=== PATIENT | female | born 1970 | race Caucasian/White ===

== ENCOUNTER 2018-09-09 09:48 | Inpatient (IN) | payer OTHER ==
[2018-09-09 10:33] VITALS: BMI 39.6
--- NOTE | 2018-09-09 11:01 | HP ---
CIWA Score Nausea/Vomitin Muscle Tremors: 3 Anxiety: 2 Agitation: 1-Slight > Activity Paroxysmal Sweats: 1-Minimal Palms Moist Orientation: 0-Oriented Tacttile Disturbances: 1-Very Mild Itch/Numbness Auditory Disturbances: 0-None Visual Disturbances: 0-None Headache: 2-Mild CIWA-Ar Total Score: 13 - Admission Criteria OASAS Guidelines: Admission for Medically Managed Detox: Requires at least one of the followin. CIWA greater than 12 2. Seizures within the past 24 hours 3. Delirium tremens within the past 24 hours 4. Hallucinations within the past 24 hours 5. Acute intervention needed for co occurring medical disorder 6. Acute intervention needed for co occurring psychiatric disorder 7. Severe withdrawal that cannot be handled at a lower level of care (continued vomiting, continued diarrhea, abnormal vital signs) requiring intravenous medication and/or fluids 8. Admission ROS [facility] Chief Complaint: 48y /o F with PMH depression, possible fatty liver dz, who presents for alcohol withdrawal. Allergies/Adverse Reactions: Allergies Allergy/AdvReac Type Severity Reaction Status Date / Time No Known Allergies Allergy Verified 09/09/18 10:19 History of Present Illness: 48y /o F with PMH depression, possible fatty liver dz, who presents for alcohol withdrawal.States that her last drink was this AM, she had 1 beer. Since she has tremors intermittently, she ends up drinking liquor in order to quell them. Drinks daily usually, 1-2 pints of vodka. Longest sobriety 3 months after attending programs. States that she drinks because she "is addicted," not because she wants to feel happy or is feeling depressed. Starting drinking in her 20's. Has history of alcohol withdrawal sz, not on meds. Happened to her 1x. Denies blackouts. Was referred here by [facility], had went there originally for alcohol detox and back pain, was subsequently sent here. Is unsure of her plans after detox, but would like to go back to work. 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 Is unsure whether she wants to do rehab. PMH: as above PsxH: denies meds: none allergies: NKDA FH: grandma (paternal side)- cancer, cousin- cancer. does not know which type SH: lives in an apt with daughter. at times, has stress involving her daughter' s father. may cause her to drink more. states she has good social support. 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 smokes cigarettes when she drinks 1-2 cigs/day. denies other drug use, alcohol use as above. Exam Limitations: No Limitations - Ebola screening Have you traveled outside of the country in the last 21 days: No Have you had contact with anyone from an Ebola affected area: No Have you been sick,other than usual withdrawal symptoms: No Do you have a fever: No - Review of Systems Constitutional: Night Sweats, Changes in sleep EENT: reports: No Symptoms Reported Respiratory: reports: No Symptoms reported Cardiac: reports: No Symptoms Reported GI: reports: Nausea, Vomiting : reports: No Symptoms Reported Musculoskeletal: reports: Back Pain Integumentary: reports: No Symptoms Reported Neuro: reports: No Symptoms reported Endocrine: reports: No Symptoms Reported Hematology: reports: No Symptoms Reported Psychiatric: reports: No Sypmtoms Reported, Orientated x3 Patient History - Patient Medical History Hx Anemia: No Hx Asthma: No Hx Chronic Obstructive Pulmonary Disease (COPD): No Hx Cancer: No Hx Cardiac Disorders: No Hx Congestive Heart Failure: No Hx Hypertension: No Hx Hypercholesterolemia: No Hx Pacemaker: No HX Cerebrovascular Accident: No Hx Seizures: No Hx Dementia: No Hx Diabetes: No Hx Gastrointestinal Disorders: No Hx Liver Disease: No Hx Genitourinary Disorders: No Hx Sexually Transmitted Disorders: No Hx Renal Disease (ESRD): No Hx Thyroid Disease: No Hx Human Immunodeficiency Virus (HIV): No Hx Hepatitis C: No Hx Depression: Yes Hx Suicide Attempt: No Hx Bipolar Disorder: No Hx Schizophrenia: No - Patient Surgical History Past Surgical History: No - PPD History Documented Results: Positive w/o proof PPD to be Administered?: No - Reproductive History Patient is a Female of Child Bearing Age (11 -55 yrs old): No Patient : No - Smoking Cessation Smoking history: Current some day smoker Aproximately how many cigarettes per day: 1 Initiated information on smoking cessation: Yes 'Breaking Loose' booklet given: 09/09/18 - Substances abused Alcohol Substance route: Oral Frequency: Daily Amount used: 2 pints of vodka Age of first use: 21 Date of last use: 09/09/18 Family Disease History - Family Disease History Family Disease History: CA: Grandparent Admission Physical Exam BHS - Vital Signs Vital Signs: Vital Signs - 24 hr 09/09/18 10:19 Temperature 99.0 F Pulse Rate 105 H Respiratory 20 Rate Blood Pressure 133/89 - Physical General Appearance: Yes: Tremorous HEENTM: Yes: Within Normal Limits, Normal ENT Inspection Respiratory: Yes: Within Normal Limits Neck: Yes: Supple Breast: Yes: Breast Exam Deferred Cardiology: Yes: Regular Rhythm, Regular Rate, Tachycardia Abdominal: Yes: Within Normal Limits Genitourinary: Yes: Within Normal Limits Back: Yes: Within Normal Limits Musculoskeletal: Yes: Within Normal Limits Extremities: Yes: Within Normal Limits, Other (+tremulous) Neurological: Yes: garment manufacturer II-XII NML intact, Other (+tongue fasciculations) Integumentary: Yes: Within Normal Limits Lymphatic: Yes: Within Normal Limits - Diagnostic (1) Depression Current Visit: Yes Status: Chronic (2) Dehydration Current Visit: Yes Status: Acute (3) Alcohol withdrawal Current Visit: Yes Status: Acute (4) Fatty liver Current Visit: Yes Status: Chronic (5) Alcohol withdrawal seizure Current Visit: Yes Status: Chronic Cleared for Admission [facility] - Detox or Rehab [facility] Level of Care: Medically Managed Detox Regimen/Protocol: Librium Breathalyzer - Breathalyzer Breathalyzer: 0.099 Urine Drug Screen - Test Device Lot number: [id number] Expiration date: 06/15/19 - Control Is test valid?: Yes - Results Drug screen NEGATIVE: Yes Inpatient Rehab Admission - Rehab Decision to Admit Inpatient rehab admission?: No
[2018-09-09] MEDS ORDERED: chlordiazePOXIDE HCL 25 MG CAPSULE PO PRN (11:16)
[2018-09-09] MEDS ORDERED: MAGNESIUM HYDROX 2400MG/30ML ORAL SUSPENSION 30 ML CUP PO PRN (11:17)
[2018-09-09] MEDS ORDERED: IBUPROFEN 400 MG TABLET (FP) PO PRN (11:17)
[2018-09-09] MEDS ORDERED: ACETAMINOPHEN 325 MG TABLET (FP) PO PRN ×2 (11:17)
[2018-09-09] MEDS ORDERED: BISMUTH SUBSALICYLATE 262 MG/15 ML BTL PO PRN (11:17)
[2018-09-09] MEDS ORDERED: hydrOXYzine HCL 25 MG TABLET (FP) PO PRN (11:17)
[2018-09-09] MEDS ORDERED: MENTHOL/PHENOL 1 EACH UD MM PRN (11:17)
[2018-09-09] MEDS: chlordiazePOXIDE HCL 25 MG CAPSULE PO SCH ×3 (12:45→23:18)
[2018-09-09 15:41] LABS: HEMATOCRIT 35.6 % (32.4-45.2); HEMOGLOBIN 11.7 GM/dL (10.7-15.3); MCH 30.5 pg (25.7-33.7); MCHC 32.7 g/dl (32.0-36.0); MEAN PLT VOLUME 9.9 fl (7.5-11.1); PLATELET COUNT 212 K/MM3 (134-434); RBC 3.83 M/mm3 (3.60-5.2); RDW 22.6 % (11.6-15.6); WHITE BLOOD COUNT 11.2 K/mm3 (4.0-10.0)
[2018-09-09 15:51] LABS: BILIRUBIN,TOTAL 1.8 mg/dL (0.2-1); BLOOD UREA NITROGEN 9.9 mg/dL (7-18); CALCIUM 7.6 mg/dL (8.5-10.1); CREATININE 0.9 mg/dL (0.55-1.3); POTASSIUM 3.5 mmol/L (3.5-5.1); TOT PROT 8.1 g/dl (6.4-8.2)
[2018-09-10] MEDS: chlordiazePOXIDE HCL 25 MG CAPSULE PO SCH ×4 (06:03→22:41)
[2018-09-10] MEDS: PRENATAL VITAMINS W/ FOLIC ACID TABLET (FP) PO SCH (10:17)
--- NOTE | 2018-09-10 13:09 | PN ---
S CIWA - CIWA Score Nausea/Vomitin-No Nausea/No Vomiting Muscle Tremors: 2 Anxiety: 3 Agitation: 2 Paroxysmal Sweats: 3 Orientation: 0-Oriented Tacttile Disturbances: 0-None Auditory Disturbances: 0-None Visual Disturbances: 0-None Headache: 2-Mild CIWA-Ar Total Score: 12 S Progress Note (SOAP) Subjective: c/o sweats, shakes, headache, and anxiety. Objective: 09/10/18 13:09 Vital Signs 09/10/18 09/10/18 06:00 09:43 Temperature 99.3 F 99.1 F Pulse Rate 107 H 72 Respiratory 18 18 Rate Blood Pressure 127/78 129/96 Lab Results WBC 11.2 K/mm3 (4.0-10.0) H 09/09/18 11:50 RBC 3.83 M/mm3 (3.60-5.2) 09/09/18 11:50 Hgb 11.7 GM/dL (10.7-15.3) 09/09/18 11:50 Hct 35.6 % (32.4-45.2) 09/09/18 11:50 MCV 93.0 fl (80-96) 09/09/18 11:50 MCHC 32.7 g/dl (32.0-36.0) 09/09/18 11:50 RDW 22.6 % (11.6-15.6) H 09/09/18 11:50 Plt Count 212 K/MM3 (134-434) 09/09/18 11:50 Sodium 141 mmol/L (136-145) 09/09/18 11:50 Potassium 3.5 mmol/L (3.5-5.1) 09/09/18 11:50 Chloride 100 mmol/L (98-107) 09/09/18 11:50 Carbon Dioxide 21 mmol/L (21-32) 09/09/18 11:50 Anion Gap 20 MMOL/L (8-16) H 09/09/18 11:50 BUN 9.9 mg/dL (7-18) 09/09/18 11:50 Creatinine 0.9 mg/dL (0.55-1.3) 09/09/18 11:50 Random Glucose 74 mg/dL (74-106) 09/09/18 11:50 Calcium 7.6 mg/dL (8.5-10.1) L 09/09/18 11:50 Labs noted. Assessment: 09/10/18 13:09 AOX3, in no respiratory distress. Full ROM, ambulating in the unit. Withdrawal symptoms. Plan: continue detox.
[2018-09-10] MEDS: MELATONIN 5 MG TABLETS PO PRN (22:41)
[2018-09-11] MEDS: chlordiazePOXIDE HCL 25 MG CAPSULE PO SCH ×4 (05:53→22:39)
[2018-09-11] MEDS: PRENATAL VITAMINS W/ FOLIC ACID TABLET (FP) PO SCH (10:13)
[2018-09-11] MEDS ORDERED: ONDANSETRON *ODT* 4 MG TABLET SL PRN (11:38)
--- NOTE | 2018-09-11 17:17 | PN ---
[facility] CIWA - CIWA Score Nausea/Vomitin-Mild Nausea/No Vomiting Muscle Tremors: 2 Anxiety: 2 Agitation: 2 Paroxysmal Sweats: 2 Orientation: 0-Oriented Tacttile Disturbances: 0-None Auditory Disturbances: 0-None Visual Disturbances: 0-None Headache: 1-Very Mild CIWA-Ar Total Score: 10 S Progress Note (SOAP) Subjective: Nausea, headache, tremor, sweating Objective: 09/11/18 17:14 Last Vital Signs Temp Pulse Resp BP Pulse Ox 98.4 F 109 H 18 113/73 09/11/18 16:53 09/11/18 16:53 09/11/18 16:53 09/11/18 16:53 Laboratory Tests 09/09/18 09/09/18 09/09/18 11:50 11:50 11:50 WBC 11.2 H RBC 3.83 Hgb 11.7 Hct 35.6 MCV 93.0 MCH 30.5 MCHC 32.7 RDW 22.6 H Plt Count 212 MPV 9.9 Sodium 141 Potassium 3.5 Chloride 100 Carbon Dioxide 21 Anion Gap 20 H BUN 9.9 Creatinine 0.9 Est GFR (CKD-EPI)AfAm 88.25 Est GFR (CKD-EPI)NonAf 76.14 Random Glucose 74 Calcium 7.6 L Total Bilirubin 1.8 H AST 328 H ALT 129 H Alkaline Phosphatase 245 H Total Protein 8.1 Albumin 4.0 RPR Titer Nonreactive HIV 1&2 Antibody Screen HIV P24 Antigen 09/09/18 12:50 WBC RBC Hgb Hct MCV MCH MCHC RDW Plt Count MPV Sodium Potassium Chloride Carbon Dioxide Anion Gap BUN Creatinine Est GFR (CKD-EPI)AfAm Est GFR (CKD-EPI)NonAf Random Glucose Calcium Total Bilirubin AST ALT Alkaline Phosphatase Total Protein Albumin RPR Titer HIV 1&2 Antibody Screen Negative HIV P24 Antigen Negative Labs reviewed: wbc 11.2, LFTs elevated Assessment: 09/11/18 17:16 Withdrawal sxs Noted with leukocytosis and elevated LFTs Plan: Continue detox Encouraged PO water intake Leukocytosis: asymptomatic, repeat CBC, send UA Elevated LFTs: repeat hepatic function panel
[2018-09-11] MEDS: MELATONIN 5 MG TABLETS PO PRN (22:39)
[2018-09-11] MEDS: MAG HYDROX/AL HYDROX/SIMETH 30 ML UNIT-DOSE CUP PO PRN (22:40)
[2018-09-12] MEDS ORDERED: chlordiazePOXIDE HCL 10 MG CAPSULE PO PRN
[2018-09-12] MEDS: chlordiazePOXIDE HCL 10 MG CAPSULE PO SCH ×4 (06:01→22:49)
[2018-09-12] MEDS: PRENATAL VITAMINS W/ FOLIC ACID TABLET (FP) PO SCH (10:37)
[2018-09-12 12:34] LABS: BASO % 0.9 % (0-2.0); EOS % 4.8 % (0-4.5); HEMATOCRIT 31.3 % (32.4-45.2); HEMOGLOBIN 10.5 GM/dL (10.7-15.3); LYMPH % 21.9 % (8-40); MCH 31.2 pg (25.7-33.7); MCHC 33.5 g/dl (32.0-36.0); MEAN PLT VOLUME 10.6 fl (7.5-11.1); NEUT % 67.4 % (42.8-82.8); PLATELET COUNT 137 K/MM3 (134-434); RBC 3.36 M/mm3 (3.60-5.2); RDW 21.9 % (11.6-15.6); WHITE BLOOD COUNT 6.9 K/mm3 (4.0-10.0)
[2018-09-12 13:00] LABS: ALBUMIN 3.3 g/dl (3.4-5.0); BILIRUBIN,TOTAL 2.4 mg/dL (0.2-1); TOT PROT 6.7 g/dl (6.4-8.2)
[2018-09-12 13:08] LABS: ANISOCYTOSIS 1+
[2018-09-12 13:09] LABS: MACROCYTOSIS 1+; TARGET CELLS 1+
--- NOTE | 2018-09-12 14:41 | PN ---
S CIWA - CIWA Score Nausea/Vomitin-No Nausea/No Vomiting Muscle Tremors: 3 Anxiety: 2 Agitation: 2 Paroxysmal Sweats: 1-Minimal Palms Moist Orientation: 0-Oriented Tacttile Disturbances: 0-None Auditory Disturbances: 0-None Visual Disturbances: 0-None Headache: 0-None Present CIWA-Ar Total Score: 8 BHS Progress Note (SOAP) Subjective: agitation sweats anxiety Objective: 09/12/18 14:40 Vital Signs Temperature 98.2 F 09/12/18 13:32 Pulse Rate 105 H 09/12/18 13:32 Respiratory Rate 20 09/12/18 13:32 Blood Pressure 107/64 09/12/18 13:32 O2 Sat by Pulse Oximetry (%) Laboratory Tests 09/09/18 09/09/18 09/09/18 10:53 11:50 11:50 WBC 11.2 H RBC 3.83 Hgb 11.7 Hct 35.6 MCV 93.0 MCH 30.5 MCHC 32.7 RDW 22.6 H Plt Count 212 MPV 9.9 Absolute Neuts (auto) Neutrophils % Lymphocytes % Monocytes % Eosinophils % Basophils % Nucleated RBC % Anisocytosis Macrocytosis Target Cells Sodium 141 Potassium 3.5 Chloride 100 Carbon Dioxide 21 Anion Gap 20 H BUN 9.9 Creatinine 0.9 Est GFR (CKD-EPI)AfAm 88.25 Est GFR (CKD-EPI)NonAf 76.14 Random Glucose 74 Calcium 7.6 L Total Bilirubin 1.8 H Direct Bilirubin AST 328 H ALT 129 H Alkaline Phosphatase 245 H Total Protein 8.1 Albumin 4.0 POC Urine HCG, Qual Negative RPR Titer HIV 1&2 Antibody Screen HIV P24 Antigen 09/09/18 09/09/18 09/12/18 11:50 12:50 07:00 WBC 6.9 RBC 3.36 L Hgb 10.5 L Hct 31.3 L MCV 93.0 MCH 31.2 MCHC 33.5 RDW 21.9 H Plt Count 137 D MPV 10.6 Absolute Neuts (auto) 4.6 Neutrophils % 67.4 Lymphocytes % 21.9 Monocytes % 5.0 Eosinophils % 4.8 H Basophils % 0.9 Nucleated RBC % 0 Anisocytosis 1+ Macrocytosis 1+ Target Cells 1+ Sodium Potassium Chloride Carbon Dioxide Anion Gap BUN Creatinine Est GFR (CKD-EPI)AfAm Est GFR (CKD-EPI)NonAf Random Glucose Calcium Total Bilirubin Direct Bilirubin AST ALT Alkaline Phosphatase Total Protein Albumin POC Urine HCG, Qual RPR Titer Nonreactive HIV 1&2 Antibody Screen Negative HIV P24 Antigen Negative 09/12/18 07:00 WBC RBC Hgb Hct MCV MCH MCHC RDW Plt Count MPV Absolute Neuts (auto) Neutrophils % Lymphocytes % Monocytes % Eosinophils % Basophils % Nucleated RBC % Anisocytosis Macrocytosis Target Cells Sodium Potassium Chloride Carbon Dioxide Anion Gap BUN Creatinine Est GFR (CKD-EPI)AfAm Est GFR (CKD-EPI)NonAf Random Glucose Calcium Total Bilirubin 2.4 H Direct Bilirubin 2.0 H AST 221 H ALT 127 H Alkaline Phosphatase 220 H Total Protein 6.7 Albumin 3.3 L POC Urine HCG, Qual RPR Titer HIV 1&2 Antibody Screen HIV P24 Antigen labs noted repeated ast and alt slowly improving will repeat labs again aaox3 ambulating no acute distress Assessment: 09/12/18 14:41 withdrawal sx Plan: continue detox increase fluids repeat ast/alt
[2018-09-12] MEDS: MELATONIN 5 MG TABLETS PO PRN (22:49)
[2018-09-13] MEDS: chlordiazePOXIDE HCL 10 MG CAPSULE PO SCH ×2 (06:28→17:56)
[2018-09-13 10:35] LABS: SGOT/AST 156 U/L (15-37); SGPT/ALT 100 U/L (13-61)
[2018-09-13] MEDS: PRENATAL VITAMINS W/ FOLIC ACID TABLET (FP) PO SCH (10:47)
[2018-09-13 11:07] LABS: URINE APPEARANCE CLEAR; URINE BILIRUBIN NEGATIVE (NEGATIVE); URINE COLOR YELLOW; URINE GLUCOSE (UA) NEGATIVE (NEGATIVE); URINE KETONE NEGATIVE (NEGATIVE); URINE LEUK ESTERASE NEGATIVE (NEGATIVE); URINE NITRITE NEGATIVE (NEGATIVE); URINE PROTEIN NEGATIVE (NEGATIVE); URINE UROBILINOGEN 0.2 mg/dL (0.2-1.0)
--- NOTE | 2018-09-13 11:55 | PN ---
S CIWA - CIWA Score Nausea/Vomitin-No Nausea/No Vomiting Muscle Tremors: 2 Anxiety: 1-Mildly Anxious Agitation: 2 Paroxysmal Sweats: 1-Minimal Palms Moist Orientation: 0-Oriented Tacttile Disturbances: 0-None Auditory Disturbances: 0-None Visual Disturbances: 0-None Headache: 0-None Present CIWA-Ar Total Score: 6 BHS Progress Note (SOAP) Subjective: sweats anxiety Objective: 09/13/18 11:54 Vital Signs Temperature 97.3 F L 09/13/18 09:28 Pulse Rate 103 H 09/13/18 09:28 Respiratory Rate 18 09/13/18 09:28 Blood Pressure 111/74 09/13/18 09:28 O2 Sat by Pulse Oximetry (%) aaox3 ambulating no acute distress Assessment: 09/13/18 11:54 mild withdrawal sx Plan: continue detox increase fluids d/c in am
[2018-09-13] MEDS: MAG HYDROX/AL HYDROX/SIMETH 30 ML UNIT-DOSE CUP PO PRN (17:58)
[2018-09-14] MEDS ORDERED: chlordiazePOXIDE HCL 10 MG CAPSULE PO ONE (05:00)
[2018-09-14 08:07] VITALS: BP 118/76; PULSE 87; TEMP 98.1
--- NOTE | 2018-09-14 09:48 | DS ---
[facility] Detox Discharge Summary Admission Date: 09/09/18 Discharge Date: 09/14/18 - History Present History: Alcohol Dependence - Physical Exam Results Vital Signs: Vital Signs Temperature 98.1 F 09/14/18 08:06 Pulse Rate 87 09/14/18 08:06 Respiratory Rate 18 09/14/18 08:06 Blood Pressure 118/76 09/14/18 08:06 O2 Sat by Pulse Oximetry (%) Pertinent Admission Physical Exam Findings: pt arrived in withdrawal sx Laboratory Tests 09/09/18 09/09/18 09/09/18 10:53 11:50 11:50 WBC 11.2 H RBC 3.83 Hgb 11.7 Hct 35.6 MCV 93.0 MCH 30.5 MCHC 32.7 RDW 22.6 H Plt Count 212 MPV 9.9 Absolute Neuts (auto) Neutrophils % Lymphocytes % Monocytes % Eosinophils % Basophils % Nucleated RBC % Anisocytosis Macrocytosis Target Cells Sodium 141 Potassium 3.5 Chloride 100 Carbon Dioxide 21 Anion Gap 20 H BUN 9.9 Creatinine 0.9 Est GFR (CKD-EPI)AfAm 88.25 Est GFR (CKD-EPI)NonAf 76.14 Random Glucose 74 Calcium 7.6 L Total Bilirubin 1.8 H Direct Bilirubin AST 328 H ALT 129 H Alkaline Phosphatase 245 H Total Protein 8.1 Albumin 4.0 Urine Color Urine Appearance Urine pH Ur Specific [place] Urine Protein Urine Glucose (UA) Urine Ketones Urine Blood Urine Nitrite Urine Bilirubin Urine Urobilinogen Ur Leukocyte Esterase POC Urine HCG, Qual Negative RPR Titer HIV 1&2 Antibody Screen HIV P24 Antigen 09/09/18 09/09/18 09/12/18 11:50 12:50 07:00 WBC 6.9 RBC 3.36 L Hgb 10.5 L Hct 31.3 L MCV 93.0 MCH 31.2 MCHC 33.5 RDW 21.9 H Plt Count 137 D MPV 10.6 Absolute Neuts (auto) 4.6 Neutrophils % 67.4 Lymphocytes % 21.9 Monocytes % 5.0 Eosinophils % 4.8 H Basophils % 0.9 Nucleated RBC % 0 Anisocytosis 1+ Macrocytosis 1+ Target Cells 1+ Sodium Potassium Chloride Carbon Dioxide Anion Gap BUN Creatinine Est GFR (CKD-EPI)AfAm Est GFR (CKD-EPI)NonAf Random Glucose Calcium Total Bilirubin Direct Bilirubin AST ALT Alkaline Phosphatase Total Protein Albumin Urine Color Urine Appearance Urine pH Ur Specific [place] Urine Protein Urine Glucose (UA) Urine Ketones Urine Blood Urine Nitrite Urine Bilirubin Urine Urobilinogen Ur Leukocyte Esterase POC Urine HCG, Qual RPR Titer Nonreactive HIV 1&2 Antibody Screen Negative HIV P24 Antigen Negative 09/12/18 09/13/18 09/13/18 07:00 07:00 07:00 WBC RBC Hgb Hct MCV MCH MCHC RDW Plt Count MPV Absolute Neuts (auto) Neutrophils % Lymphocytes % Monocytes % Eosinophils % Basophils % Nucleated RBC % Anisocytosis Macrocytosis Target Cells Sodium Potassium Chloride Carbon Dioxide Anion Gap BUN Creatinine Est GFR (CKD-EPI)AfAm Est GFR (CKD-EPI)NonAf Random Glucose Calcium Total Bilirubin 2.4 H Direct Bilirubin 2.0 H AST 221 H 156 H ALT 127 H 100 H Alkaline Phosphatase 220 H Total Protein 6.7 Albumin 3.3 L Urine Color Yellow Urine Appearance Clear Urine pH 7.0 Ur Specific [place] 1.005 L Urine Protein Negative Urine Glucose (UA) Negative Urine Ketones Negative Urine Blood Negative Urine Nitrite Negative Urine Bilirubin Negative Urine Urobilinogen 0.2 Ur Leukocyte Esterase Negative POC Urine HCG, Qual RPR Titer HIV 1&2 Antibody Screen HIV P24 Antigen today pt is aaox3 ambulating no acute distress no s/s of withdrawal sx - Treatment Hospital Course: Detox Protocol Followed, Detoxed Safely, Responded well, Discharged Condition Good, Rehab Referral Accepted Patient has Accepted a Rehab Referral to: declined rehab; referral provided - Medication Discharge Medications: Ambulatory Orders NK [No Known Home Medication] 09/09/18 - Diagnosis (1) Alcohol withdrawal Status: Chronic Qualifiers: Complication of substance-induced condition: uncomplicated Qualified Code(s ): F10.230 - Alcohol dependence with withdrawal, uncomplicated (2) Dehydration Status: Acute (3) Alcohol withdrawal seizure Status: Chronic (4) Depression Status: Chronic (5) Fatty liver Status: Chronic - AMA Did Patient Leave Against Medical Advice: No
== END 2018-09-14 09:23 | disposition home or self-care (01) | DRG 775 ==
LOC: YASAS 09:48 → Y6N 11:26
PROVIDERS: ADMIT Surgery; ATTEND Surgery
PROC: HZ2ZZZZ Detoxification Services for Substance Abuse Treatment (ICD-10-PCS; principal; 2018-09-09)
DX: F10.230 Alcohol dependence with withdrawal, uncomplicated (principal); F17.210 Nicotine dependence, cigarettes, uncomplicated; F32.9 Major depressive disorder, single episode, unspecified; E86.0 Dehydration; K76.0 Fatty (change of) liver, not elsewhere classified; D72.829 Elevated white blood cell count, unspecified; R94.5 Abnormal results of liver function studies; R00.0 Tachycardia, unspecified; Z86.69 Personal history of other diseases of the nervous system and sense organs
CPT/HCPCS: 36415; 71046-TC-FY; 80053; 80076; 81003; 81025; 84450; 84460; 85025; 85027; 86593; 87389; Q0162